=== PATIENT | male | born 1965 | race Caucasian/White ===

== ENCOUNTER 2020-05-21 06:38 | Day surgery (SDC) | payer OTHER ==
[2020-05-20 12:49] VITALS: BMI 34.2
[2020-05-21] MEDS ORDERED: MIDAZOLAM HCL 2 MG/2 ML SINGLE DOSE VIAL ONE ×2 (18:16→18:44)
[2020-05-21] MEDS ORDERED: ceFAZolin SODIUM 1 GM VIAL IVPB ONE (18:42)
[2020-05-21 20:16] VITALS: BP 126/72; PULSE 58; TEMP 98
== END 2020-05-21 20:00 | disposition home or self-care (01) ==
LOC: JASU-SURG 06:38
PROVIDERS: ATTEND Urology
PROC: 0TF3XZZ Fragmentation in Right Kidney Pelvis, External Approach (ICD-10-PCS; principal; 2020-05-21 16:15)
DX: N20.0 Calculus of kidney (principal)

== ENCOUNTER 2020-10-08 04:12 | Day surgery (SDC) | payer OTHER ==
[2020-10-07 18:32] VITALS: BMI 20.9
[2020-10-08] MEDS ORDERED: SUCCINYLCHOLINE CHLORIDE 200 MG/10 ML SYRINGE ONE (13:51)
[2020-10-08] MEDS ORDERED: EPHEDRINE SULFATE/0.9% NACL/PF 50 MG/10 ML SYRINGE NR ONE (13:52)
[2020-10-08] MEDS ORDERED: MIDAZOLAM HCL 2 MG/2 ML SINGLE DOSE VIAL ONE (13:52)
[2020-10-08] MEDS ORDERED: PROPOFOL 20 ML ONE ×2 (13:52)
[2020-10-08] MEDS ORDERED: LIDOCAINE HCL/PF 2% SDV 5ML VIAL ONE (13:53)
[2020-10-08] MEDS ORDERED: ceFAZolin SODIUM 1 GM VIAL IVPB ONE (14:35)
[2020-10-08] MEDS ORDERED: ACETAMINOPHEN INJECTION 100 ML IVPB ONE (15:07)
[2020-10-08] MEDS ORDERED: ONDANSETRON 4 MG/2 ML VIAL IVPUSH PRN (15:24)
[2020-10-08 19:56] VITALS: BP 132/76; PULSE 68; TEMP 97.9
== END 2020-10-08 20:05 | disposition home or self-care (01) ==
LOC: JASU-SURG 04:12
PROVIDERS: ATTEND Urology
PROC: BT1DYZZ Fluoroscopy of Right Kidney, Ureter and Bladder using Other Contrast (ICD-10-PCS; 2020-10-08)
PROC: 0TC68ZZ Extirpation of Matter from Right Ureter, Via Natural or Artificial Opening Endoscopic (ICD-10-PCS; principal; 2020-10-08 12:45)
PROC: 0TP98DZ Removal of Intraluminal Device from Ureter, Via Natural or Artificial Opening Endoscopic (ICD-10-PCS; 2020-10-08 12:45)
DX: N20.1 Calculus of ureter (principal)
CPT/HCPCS: 36415; 76000-TC-FY; 82360; 87086; 94760; J0131

== ENCOUNTER 2022-07-21 04:04 | Day surgery (SDC) | payer OTHER ==
[2022-07-20 16:11] VITALS: BMI 33.5
[~2022-07-21 04:04] MED LIST: ceFAZolin SODIUM 1 GM VIAL IVPB ONE
[2022-07-21] MEDS ORDERED: PROPOFOL 20 ML ONE ×2 (15:19→15:22)
[2022-07-21] MEDS ORDERED: MIDAZOLAM HCL 2 MG/2 ML SINGLE DOSE VIAL ONE (15:20)
[2022-07-21] MEDS ORDERED: SODIUM CHLORIDE 0.9% P/F 10 ML VIAL IJ ONE ×2 (15:21→15:23)
[2022-07-21] MEDS ORDERED: GLYCOPYRROLATE 0.2 MG/1 ML VIAL ONE (15:21)
[2022-07-21] MEDS ORDERED: ceFAZolin SODIUM 1 GM VIAL ONE (15:21)
[2022-07-21] MEDS ORDERED: LIDOCAINE HCL/PF 2% SDV 5ML VIAL ONE (15:21)
[2022-07-21] MEDS ORDERED: ceFAZolin SODIUM 1 GM VIAL IVPB ONE (15:39)
[2022-07-21] MEDS ORDERED: KETOROLAC TROMETHAMINE 30 MG/1 ML VIAL ONE (15:44)
[2022-07-21] MEDS ORDERED: DEXAMETHASONE SOD PHOSPHATE 4 MG/1 ML VIAL ONE (15:44)
[2022-07-21] MEDS ORDERED: ONDANSETRON 4 MG/2 ML VIAL ONE (15:44)
[2022-07-21] MEDS ORDERED: GENTAMICIN SO4 80 MG/2 ML VIAL ONE (16:14)
[2022-07-21] MEDS ORDERED: PROMETHAZINE HCL 25 MG/1 ML VIAL IVPB PRN (16:37)
[2022-07-21] MEDS ORDERED: ONDANSETRON 4 MG/2 ML VIAL IVPUSH PRN (16:37)
[2022-07-21] MEDS ORDERED: oxyCODONE HCL 5 MG TABLET PO PRN (16:37)
[2022-07-21] MEDS ORDERED: LACTATED RINGERS SOLUTION 1,000 ML IV SCH (16:45)
[2022-07-21 18:44] VITALS: RESP 18; TEMP 97.1
[2022-07-21 18:45] VITALS: BP 122/77; PULSE 69
== END 2022-07-21 19:00 | disposition home or self-care (01) ==
LOC: JASU-SURG 04:04
PROVIDERS: ATTEND Urology
PROC: 0TC68ZZ Extirpation of Matter from Right Ureter, Via Natural or Artificial Opening Endoscopic (ICD-10-PCS; principal; 2022-07-21 12:00)
PROC: 0T768DZ Dilation of Right Ureter with Intraluminal Device, Via Natural or Artificial Opening Endoscopic (ICD-10-PCS; 2022-07-21 12:00)
PROC: BT1D1ZZ Fluoroscopy of Right Kidney, Ureter and Bladder using Low Osmolar Contrast (ICD-10-PCS; 2022-07-21 12:00)
DX: N20.2 Calculus of kidney with calculus of ureter (principal)
CPT/HCPCS: 76000-TC-FY; 88300-TC; 94760; C1747; C1758; C2617